=== PATIENT | male | born 1975 | race Caucasian/White ===

== ENCOUNTER 2021-11-08 13:11 | Emergency (ER) | payer MEDICAID ==
[~2021-11-08] VITALS: Ht 172.7 cm; Wt 90.9 kg
[2021-11-08] MEDS ORDERED: ringers solution, lacted 1,000 ML IV ONE (14:55)
[2021-11-08 15:13] LABS: BASOPHILS % (AUTO) 0.2 % (0-1); EOSINOPHILS # (AUTO) 0.1 X10'3 (0-0.9); EOSINOPHILS % (AUTO) 0.4 % (0-6); HEMATOCRIT 41.2 % (42.0-52.0); HEMOGLOBIN 13.6 g/dl (14.0-17.9); LYMPHOCYTES # (AUTO) 1.3 X10'3 (1.1-4.8); LYMPHOCYTES % (AUTO) 9.3 % (21-51); MEAN CORPUSCULAR HEMOGLOBIN 29.5 PG (27.0-31.0); MEAN CORPUSCULAR HGB CONC 33.1 g/dL (33.0-36.5); MEAN PLATELET VOLUME 8.5 FL (7.4-10.4); MONOCYTES # (AUTO) 1.4 X10'3 (0-0.9); MONOCYTES % (AUTO) 10.5 % (2-12); NEUTROPHILS # (AUTO) 10.8 X10'3 (1.8-7.7); NEUTROPHILS % (AUTO) 79.6 % (42-75); PLATELET COUNT 126 X10'3 (140-440); RED BLOOD COUNT 4.63 X10'6 (4.70-6.10); RED CELL DISTRIBUTION WIDTH 14.1 % (11.5-14.5); WHITE BLOOD COUNT 13.6 X10'3 (4.5-11.0)
[2021-11-08 15:42] LABS: ALANINE AMINOTRANSFERASE 9 U/L (12-78); ALBUMIN 2.6 G/DL (3.4-5.0); ALBUMIN/GLOBULIN RATIO 0.7 (1.1-1.5); ALKALINE PHOSPHATASE 52 IU/L (46-116); ANION GAP 8 (8-16); ASPARTATE AMINO TRANSFERASE 12 U/L (10-37); BILIRUBIN,TOTAL 0.7 MG/DL (0.1-1.0); BLOOD UREA NITROGEN 37 MG/DL (7-18); BUN/CREATININE RATIO 26.1 (5.4-32.0); CHLORIDE 94 MMOL/L (99-107); CREATININE 1.42 MG/DL (0.60-1.10); GLUCOSE 103 MG/DL (70-104); POTASSIUM 5.2 MMOL/L (3.5-5.1); SODIUM 129 MMOL/L (135-145); TOTAL CARBON DIOXIDE 26.6 MMOL/L (24-32); TOTAL PROTEIN 6.2 G/DL (6.4-8.2); eGFR 53 ML/MIN
[2021-11-08 15:46] LABS: ETHANOL < 0.010 GM/DL (0.0-0.010); LIPASE 253 U/L (73-393); MAGNESIUM 2.2 MG/DL (1.5-2.4)
[2021-11-08] MEDS ORDERED: iohexol 300mg/ml 100ml inj. ONE (16:16)
[2021-11-08 16:37] VITALS: BP 107/70
[2021-11-08 17:43] LABS: URINE AMPHETAMINE SCREEN NEGATIVE (Neg); URINE BARBITUATE SCREEN NEGATIVE (Neg); URINE BENZODIAZEPINES SCREEN NEGATIVE (Neg); URINE CANNABINOID SCREEN NEGATIVE (Neg); URINE COCAINE SCREEN NEGATIVE (Neg); URINE METHADONE SCREEN NEGATIVE (Neg); URINE OPIATE SCREEN NEGATIVE (Neg); URINE PHENCYCLIDINE SCREEN NEGATIVE (Neg)
[2021-11-08 18:02] LABS: CLARITY,URINE CLEAR (Clear); COLOR,URINE YELLOW (Yellow); GLUCOSE, URINE NEGATIVE (Neg); KETONES,URINE NEGATIVE (Neg); LEUKOCYTE ESTERASE ,URINE NEGATIVE (Neg); NITRITES, URINE NEGATIVE (Neg); OCCULT BLOOD,URINE NEGATIVE (Neg); PROTEIN,URINE NEGATIVE (Neg)
[2021-11-08 18:10] LABS: UA COLLECTION TYPE VOIDED
[2021-11-08] MEDS ORDERED: METR-159 PO ×2 (19:28→20:41)
[2021-11-08] MEDS ORDERED: CIPR-429 PO ×2 (19:28→20:41)
== END 2021-11-08 22:14 | disposition home or self-care (01) ==
LOC: ER 13:12
DX: K52.89 Other specified noninfective gastroenteritis and colitis (principal); F20.9 Schizophrenia, unspecified; F17.210 Nicotine dependence, cigarettes, uncomplicated; Z88.8 Allergy status to other drugs, medicaments and biological substances
CPT/HCPCS: 36415; 71046; 74018; 74177; 80053; 80305; 80320; 81003; 82140; 83605; 83690; 83735; 84484; 85025; 87040; 96360; 96361; 99285; J7120; Q9967; 93005; 96365; 96366